=== PATIENT | male | born 2000 | race Caucasian/White ===

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

== ENCOUNTER 2020-08-19 23:14 | Emergency (ER) | payer MEDICAID, OTHER ==
[~2020-08-19] VITALS: Ht 180.3 cm; Wt 72.6 kg
[~2020-08-19 23:14] MED LIST: [UNRECOGNIZED DRUG - CODE] PO
[2020-08-19 23:15] VITALS: BP 140/87
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
--- NOTE | 2020-08-19 23:40 | NUR ---
RT IN ROOM. PT IS BREATHING. SPO2 100% . MD IN ROOM. WILL MONITOR.
[2020-08-20] MEDS ORDERED: ONDANSETRON 4 MG ODT PO ONE ×2 (00:10→01:10)
--- NOTE | 2020-08-20 00:15 | NUR ---
PATIENT PULLED PUT 18G IN L AC. IV PLACED BY EMS PRIOR TO ARRIVAL.
--- NOTE | 2020-08-20 00:15 | NUR ---
IV Catheter intact and site benign. Applied folded 4x4 gauze and tape to stop bleeding.
--- NOTE | 2020-08-20 00:20 | NUR ---
PATIENT AMBUALTED TO RESTROOM WITH STEADY GAIT. HAT PLACED IN RESTROOM TO COLLECT URINE SAMPLE.
--- NOTE | 2020-08-20 00:25 | NUR ---
PATIENT HAD X 1 EPISODE OF VOMITING. ERMD MADE AWARE AND GAVE NEW ORDER FOR ZOFRAN 4MG ODT.
[2020-08-20] MEDS ORDERED: METOCLOPRAMIDE 10 MG TAB PO ONE ×2 (00:35→00:40)
[2020-08-20] MEDS ORDERED: METOCLOPRAMIDE 10 MG TAB ONE (00:39)
--- NOTE | 2020-08-20 00:40 | NUR ---
PATIENT HAD ANOTHER EPISODE OF VOMITING. PERMD MADE AWARE. NEW ORDER FOR REGLAN 10 PO GIVEN.
[2020-08-20 00:46] LABS: BARBITURATE, URINE NEGATIVE ng/ml (NEG <=200); BENZODIAZEPINE, URINE NEGATIVE ng/mL (NEG <=200); CANNABINOID, URINE POSITIVE ng/mL (NEG <=50); COCAINE, URINE NEGATIVE ng/mL (NEG <=300); OPIATE, URINE NEGATIVE ng/mL (NEG <=2000); PHENCYCLIDINE SCREEN,URINE NEGATIVE ng/mL (NEG <=25)
--- NOTE | 2020-08-20 00:49 | NUR ---
PATIENT AMBUALTED TO RESTROOM WITH STEADY GAIT. PATIENT STATES,"WHEN CAN I GO HOME I FEEL FINE NOW. I JUST WANT TO GO HOME."
[2020-08-20] MEDS ORDERED: NALO4SPR NS (00:52)
[2020-08-20 01:40] VITALS: BP 130/72
--- NOTE | 2020-08-20 01:40 | NUR ---
Patient discharged with v/s stable. Written and verbal after care instructions given and explained. Patient alert, oriented and verbalized understanding of instructions. Ambulatory with steady gait. All questions addressed prior to discharge. ID band removed. Patient advised to follow up with PMD. Rx of NARCAN given. Patient educated on indication of medication including possible reaction and side effects. Opportunity to ask questions provided and answered.
--- NOTE | 2020-08-20 01:40 | NUR ---
Patient presented to facility under the influence of Drugs. Patient is currently ambulatory with steady gait, able to walk unassisted. Positive gag reflex. Alert and oriented. Is not driving self for discharge out of facility.
== END 2020-08-20 01:40 | disposition home or self-care (01) ==
LOC: MED 23:14
DX: T50.7X1A Poisoning by analeptics and opioid receptor antagonists, accidental (unintentional), initial encounter (principal); H53.143 Visual discomfort, bilateral; Y92.89 Other specified places as the place of occurrence of the external cause; Z79.899 Other long term (current) drug therapy
CPT/HCPCS: 80305; 99284; J8597; Q0162

== ENCOUNTER 2021-02-11 12:02 | Emergency (ER) | payer MEDICAID, OTHER ==
[~2021-02-11] VITALS: Ht 180.3 cm; Wt 72.6 kg
[~2021-02-11 12:02] MED LIST changes: +NALO4SPR NS
[2021-02-11 12:04] VITALS: BP 114/74
--- NOTE | 2021-02-11 12:06 | NUR ---
PT TO AWAIT IN LOBBY
--- NOTE | 2021-02-11 12:07 | NUR ---
Norma de león in EDM - 02/11/21 at 1208 by [email or web address] PATIENT ELOPED FROM FACILITY. DISCHARGE INSTRUCTIONS NOT GIVEN TO PATIENT. DR. APONTE NOTIFIED.
--- NOTE | 2021-02-11 12:07 | NUR ---
Norma changetienne in ED - 02/11/21 at 1210 by [email or web address] PATIENT LEFT WITHOUT BEING SEEN BY DR. APONTE. NO FURTHER CARE PROVIDED FOR PATIENT.
[2021-02-11 13:41] VITALS: BP 114/74
--- NOTE | 2021-02-11 13:41 | NUR ---
PATIENT LWBS DISCHARGE INSTRUCTIONS NOT GIVEN TO PATIENT. KUSHAL MARQUEZ NOTIFIED.
--- NOTE | 2021-02-11 13:41 | NUR ---
Norma de león in ED - [facility]. DISCHARGE INSTRUCTIONS NOT GIVEN TO PATIENT. KUSHAL JONAS NOTIFIED.
== END 2021-02-11 13:41 | disposition left against medical advice (07) ==
LOC: MED 12:02
DX: T40.415A Adverse effect of fentanyl or fentanyl analogs, initial encounter (principal); Z53.21 Procedure and treatment not carried out due to patient leaving prior to being seen by health care provider; Y92.89 Other specified places as the place of occurrence of the external cause